=== PATIENT | female | born 2000 | race Caucasian/White ===

== ENCOUNTER 2019-09-30 08:00 | Emergency (ER) | payer BC ==
[~2019-09-30] VITALS: Ht 165.1 cm; Wt 99.8 kg
--- NOTE | 2019-09-30 08:07 | NUR ---
Dr Winkler at the bedside for MSE.
--- NOTE | 2019-09-30 08:08 | NUR ---
Dr Warner at the bedside, explain procedure, Pt signed consent.
[2019-09-30] MEDS ORDERED: EVEKO PO (08:09)
[2019-09-30] MEDS ORDERED: LIDOCAINE HCL 1% 20 ML VIAL IJ ONE (08:15)
--- NOTE | 2019-09-30 08:41 | NUR ---
Procedure completed by Dr Warner, pt tolorated well.
--- NOTE | 2019-09-30 08:50 | NUR ---
Pt states feeling fine and wishes to be discharged. No drainage noted at the lumbar puncture site.
[2019-09-30 08:52] VITALS: BP 110/77
--- NOTE | 2019-09-30 08:55 | NUR ---
Patient discharged to home in stable condition. Written and verbal after care instructions given. Patient verbalizes understanding of instructions. Stressed follow up or return to ER for worsening s/s.
[2019-09-30 09:46] LABS: CSF GLUCOSE 54 mg/dL (40-70); CSF PROTEIN 26 mg/dL (15-45)
== END 2019-09-30 08:55 | disposition home or self-care (01) ==
LOC: ER 08:00
DX: R51 Headache (principal); H53.8 Other visual disturbances; V89.2XXS Person injured in unspecified motor-vehicle accident, traffic, sequela
CPT/HCPCS: 62270; 82945; 84157; 86592 ×2; 87070; 87205; 87529; 89051; 99285; J2001; A4663